=== PATIENT | male | born 1985 | race Caucasian/White ===

== ENCOUNTER → 2016-10-15 | Emergency (ER) | payer MEDICAID ==
[2016-10-15 18:31] VITALS: BP 153/80; PULSE 77; RESP 16; TEMP 98.8; O2SAT 96
--- NOTE | 2016-10-15 19:05 | EDPHY ---
H & P Time Seen by Provider: 10/15/16 18:33 HPI/ROS: CHIEF COMPLAINT: Right ankle pain History by patient HISTORY OF PRESENT ILLNESS: A 31-year-old man presents complaining of right ankle pain and swelling after he had in eversion injury while running in a field last night and tripping on something. He said immediately swelled up and was painful and he has been unable to weight bear since then. He is took some Aleve at home last night with some relief. He denies other pain or injury. REVIEW OF SYSTEMS: As in HPI, and all other systems reviewed and are negative Smoking Status: Former smoker Physical Exam: General Appearance: Alert and no distress. Eyes: Pupils equal and round no injection. Musculoskeletal: Neck is supple and nontender. Extremities: Right ankle positive swelling on the lateral side, positive posterior lateral malleolar tenderness, no medial malleolar tenderness, positive anterior tenderness, no 5th metatarsal tenderness, decreased range of motion secondary to pain, full range of motion of all toes, DP pulse 2 +and equal to the left, distal sensation intact. Skin: No rashes or lesions. Constitutional: Initial Vital Signs Temperature (C) 37.1 C 10/15/16 18:26 Heart Rate 77 10/15/16 18:26 Respiratory Rate 16 10/15/16 18:26 Blood Pressure 153/80 H 10/15/16 18:26 O2 Sat (%) 96 10/15/16 18:26 O2 Delivery Mode Room Air Allergies/Adverse Reactions: No Known Allergies Allergy (Unverified 10/15/16 18:30) MDM/Departure - MDM Imaging Results: Imaging Impressions Ankle X-Ray 10/15/16 18:34 Impression: Moderate soft tissue swelling over the lateral malleolus indicating the soft tissue injury. No evidence for fracture. Imaging: I viewed and interpreted images myself ED Course/Re-evaluation: 31-year-old man presents with right ankle pain and swelling after twisting it last night. X-ray shows no evidence of fracture. Patient was placed in a Velcro stirrup splint. We discussed home care shooting splint, ice, ibuprofen. I am recommending follow up with primary care physician as needed. - Depart Disposition: Home, Routine, Self-Care Clinical Impression: Sprain of right ankle Qualifiers: Encounter type: initial encounter Involved ligament of ankle: unspecified ligament Qualified Code(s): S93.401A - Sprain of unspecified ligament of right ankle, initial encounter Condition: Good Instructions: Ankle Sprain (ED), Ankle Stirrup Splint (ED) Additional Instructions: You were seen by Dr. Teetee Albarran today. Use ibuprofen or Naprosyn as needed for pain. Ice your ankle every couple hours for the next 24 hours. You may weight bear as tolerated. Follow up with your primary care physician. Return for any worsening or new concerns. Referrals: Nimisha Tomas DO [Primary Care Provider] - As per Instructions
== END | disposition home or self-care (01) ==
LOC: CED 18:21
DX: S93.401A Sprain of unspecified ligament of right ankle, initial encounter (principal); Z87.891 Personal history of nicotine dependence; W18.40XA Slipping, tripping and stumbling without falling, unspecified, initial encounter; Y99.8 Other external cause status; Y93.02 Activity, running
CPT/HCPCS: 73610-PO; L4350